=== PATIENT | female | born 2000 | race African-American/Black ===

== ENCOUNTER 2022-01-28 18:36 | Emergency (ER) | payer MEDICAID ==
[~2022-01-28] VITALS: Ht 167.6 cm; Wt 52.2 kg
[2022-01-28 18:50] VITALS: BP 93/62
[2022-01-28] MEDS ORDERED: ACETAMINOPHEN/CODEINE#3 (300/30mg) TAB PO ONE (21:00)
[2022-01-28] MEDS ORDERED: AZITHROMYCIN 250 MG TAB PO ONE (21:00)
[2022-01-28] MEDS ORDERED: DexAMETHasone 4 MG TAB PO ONE (21:00)
[2022-01-28] MEDS ORDERED: IBUPROFEN 800 MG TAB PO ONE (21:00)
[2022-01-28] MEDS ORDERED: DEX4T PO (21:38)
[2022-01-28] MEDS ORDERED: AZIT250T9 PO (21:38)
== END 2022-01-28 22:00 | disposition home or self-care (01) ==
LOC: ER 18:36
DX: U07.1 COVID-19 (principal)
CPT/HCPCS: 36415; 87426; 99284; J8540